=== PATIENT | female | born 1975 | race Caucasian/White ===

== ENCOUNTER → 2019-03-14 | Outpatient (CLI) | payer OTHER ==
--- NOTE | 2019-03-14 15:30 | RADIOLOGY REPORT (SQ) ---
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 TECHNIQUE: Sagittal and Axial imaging includes T1, T2, STIR and gradient echo sequences. LIMITATIONS: None. FINDINGS: ALIGNMENT: Normal. VERTEBRAE: Intact. BONE MARROW: Normal. No marrow replacement or reactive changes. DISCS: Diffuse decreased T2 weighted intervertebral disc signal. Disc space loss of height at C6-7 HARDWARE: None in the spine. CORD AND BASE OF BRAIN: Normal in size and signal intensity. SOFT TISSUES: No soft tissue masses. C1-C2: No significant spinal stenosis. C2-C3: No central or foraminal stenosis. C3-C4: No central or foraminal stenosis C4-C5: No central or foraminal stenosis C5-C6: No central or foraminal stenosis C6-C7: Mild diffuse posterior disc bulge and bony spurring is present partly effacing the ventral the rashel sac. No cord flattening or abnormal intrinsic cord signal. No significant central canal narrowi ng. Mild bilateral foraminal narrowing from facet and uncovertebral hypertrophy. C7-T1: Minimal left paracentral disc bulge. No central or foraminal stenosis UPPER THORACIC: Incompletely imaged. No significant spinal stenosis or exit foraminal stenosis. OTHER: No other significant finding. IMPRESSION: Degenerative disc changes in the lower cervical spine without significant central canal or foraminal encroachment TECHNICAL DOCUMENTATION: JOB ID: [id number] [employer]- All Rights Reserved Reading location - IP/workstation name: [email or web address]
== END ==
LOC: RAD 07:42
PROVIDERS: ATTEND Physician Assistant
DX: M50.323 Other cervical disc degeneration at C6-C7 level (principal); M54.12 Radiculopathy, cervical region
CPT/HCPCS: 72141

== ENCOUNTER → 2019-07-10 | Outpatient (CLI) | payer OTHER ==
--- NOTE | 2019-07-10 13:01 | WOMENS IMAGING REPORT ---
EXAM DESCRIPTION: [place] BILATERAL SCREEN COMPLETED DATE/TIME: 07/10/2019 10:03 am REASON FOR STUDY: Z12.31 SCREENING MAMMO Z12.31 ENCNTR SCREEN MAMMOGRAM FOR MALIGNANT NEOPLASM OF B RE COMPARISON: None. EXAM PARAMETERS: Standard craniocaudal and mediolateral oblique views of each breast recorded using digital acquisition. Read with the assistance of CAD. .[facility] - [employer]2 [employer] Version 9.2 LIMITATIONS: None. FINDINGS: No suspicious masses, suspicious calcifications or architectural distortion. No areas of c oncern. IMPRESSION: Negative MAMMOGRAM. BIRADS 1 BREAST DENSITY: b. There are scattered areas of fibroglandular density. BIRAD: ASSESSMENT: 1 NEGATIVE RECOMMENDATION: ROUTINE SCREENING COMMENT: The patient has been notified of the results by letter per MQSA requirements. Additional no tification policies are in place for contacting patient with suspicious or incomplete findings. Quality ID #[id number]: The [employer] recommends an annual screening mammogram for women aged 40 years or over. This facility utilizes a reminder system to ensure that all patients receive reminder letters, and/or direct phone calls for appointments. This includes reminders for routine scr eening mammograms, diagnostic mammograms, or other Breast Imaging Interventions when appropriate. Th is patient will be placed in the appropriate reminder system. TECHNICAL DOCUMENTATION: FINDING NUMBER: (1) ASSESSMENT: (1) JOB ID: [id number] [employer]- All Rights Reserved Reading location - IP/workstation name: [email or web address]
== END ==
LOC: WI 09:25
PROVIDERS: ATTEND Preventive Medicine Public Health & General Preventive Medicine
DX: Z12.31 Encounter for screening mammogram for malignant neoplasm of breast (principal)
CPT/HCPCS: 77067